=== PATIENT | male | born 1970 ===

== ENCOUNTER 2022-07-01 10:30 | Inpatient (IN) | payer OTHER ==
[~2022-07-01] VITALS: Ht 167.6 cm; Wt 77.1 kg
[2022-07-07] MEDS ORDERED: METFORMIN HCL1000 M2 PO (14:33)
[2022-07-08] MEDS ORDERED: GLIMEPIRIDE4 MG (08:14)
[2022-07-13] MEDS ORDERED: ZOLPIDEM TARTRAT5 MG (16:23)
[2022-07-16] MEDS ORDERED: ULTRACET PO (13:01)
[2022-07-16] MEDS ORDERED: HYOSCYAMINE0.125 M1 SL (13:02)
[2022-07-16] MEDS ORDERED: PEPCID AC20 MG PO (13:02)
== END 2022-07-16 14:38 | disposition home or self-care (01) | DRG 330 ==
LOC: SURH 07-13 10:30 → O/R 07-13 11:00 → SURH 07-13 18:00
PROVIDERS: ADMIT Surgery; ATTEND Surgery
PROC: 0DTP4ZZ Resection of Rectum, Percutaneous Endoscopic Approach (ICD-10-PCS; 2022-07-13)
PROC: 0DTN4ZZ Resection of Sigmoid Colon, Percutaneous Endoscopic Approach (ICD-10-PCS; 2022-07-13)
PROC: 0DBQ4ZZ Excision of Anus, Percutaneous Endoscopic Approach (ICD-10-PCS; 2022-07-13)
PROC: 07BC4ZZ Excision of Pelvis Lymphatic, Percutaneous Endoscopic Approach (ICD-10-PCS; 2022-07-13)
PROC: 0D1N4Z4 Bypass Sigmoid Colon to Cutaneous, Percutaneous Endoscopic Approach (ICD-10-PCS; principal; 2022-07-13 18:00)
DX: C18.7 Malignant neoplasm of sigmoid colon (principal); D68.8 Other specified coagulation defects; K76.6 Portal hypertension; Z20.822 Contact with and (suspected) exposure to COVID-19; K70.31 Alcoholic cirrhosis of liver with ascites; D69.59 Other secondary thrombocytopenia